=== PATIENT | female | born 1950 | race Caucasian/White ===

== ENCOUNTER 2016-09-07 03:39 | Inpatient (IN) | payer OTHER ==
[2016-09-07] MEDS ORDERED: DILTIAZEM HCL 5 MG/ML 5ML VIAL IV ONE (03:52)
[2016-09-07 04:08] LABS: VENOUS BLOOD GAS BASE EXCESS -1.7 mmol/L (-2.0-2.0)
[2016-09-07] MEDS ORDERED: ETOMIDATE 2 MG/ML 10ML VIAL IV ONE (04:11)
[2016-09-07 04:15] LABS: BASO % 0.2 % (0.2-1.0); EOS % 0.1 % (0.9-2.9); HEMATOCRIT 44.1 % (37.0-47.0); HEMOGLOBIN 14.7 gm/l (12.0-16.0); IMM NEUT # 0.1 K/mm3 (0-0.2); IMM NEUT% 0.3 % (0-1); LYMPH # 2.5 (1.0-4.8); LYMPH % 16.8 % (15-45); MEAN CELL VOLUME 84.2 fl (81.0-99.0); MEAN CORPUSCULAR HEMOGLOBIN 28.1 pg (27.0-31.0); MEAN CORPUSCULAR HGB CONC 33.3 g/dl (33.0-37.0); MEAN PLATELET VOLUME 9.6 fl (7.4-10.4); MONO # 1.3 (0.0-0.8); MONO % 8.6 % (4-12); PLATELET COUNT 267 K/mm3 (130-400); RED CELL DISTRIBUTION WIDTH 14.6 % (11.5-14.5)
[2016-09-07 04:18] LABS: I-STAT CREATININE 0.7 mg/dL (0.6-1.3)
[2016-09-07 05:09] LABS: ALB/GLOB RATIO 1.3 (>1.0); ALBUMIN 4.3 gm/dL (3.5-5.7); CALCIUM 9.3 mg/dL (8.6-10.3)
[2016-09-07] MEDS ORDERED: CEFTRIAXONE 1 GRAM DUPLEX 50 ML IV ONE (05:19)
[2016-09-07] MEDS ORDERED: AZITHROMYCIN 250 MG TABLET ONE (05:19)
[2016-09-07] MEDS ORDERED: SODIUM CHLORIDE 0.9% 100 ML IV PRN (05:58)
[2016-09-07] MEDS ORDERED: BLISTEX LIPSTICK 1 EACH TP PRN (05:58)
[2016-09-07] MEDS ORDERED: MAGNESIUM HYDROXIDE 30 ML UDCUP PO PRN (05:58)
[2016-09-07] MEDS ORDERED: BISACODYL 5 MG TABLET.EC PO PRN (05:58)
[2016-09-07] MEDS ORDERED: BISACODYL 10 MG SUP PR PRN (05:58)
[2016-09-07 06:58] VITALS: BMI 26.9
[2016-09-07] MEDS: ACETAMINOPHEN 325 MG TABLET PO PRN ×2 (08:17→15:35)
[2016-09-07] MEDS: DOCUSATE SODIUM 100 MG CAPSULE PO SCH ×2 (08:17→20:51)
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
[2016-09-07] MEDS: ALBUTEROL NEB 2.5 MG/3 ML VIAL.NEB NEB PRN (08:34)
[2016-09-07] MEDS ORDERED: PUMP TUBING ONE (08:48)
--- NOTE | 2016-09-07 08:51 | RAD ---
09/07/2016 8:45 AM CHEST-AP BEDSIDE History: Shortness of breath Comparison: 09/01/2016 Findings: Single AP view of the chest is obtained. The lungs are clear with out effusion or pneumothorax. The cardiomediastinal silhouette is unremarkable.. The osseous structures are intact.. IMPRESSION: No acute intrathoracic process.
[2016-09-07] MEDS ORDERED: LORAZEPAM 0.5 MG TABLET PO PRN (12:09)
[2016-09-07] MEDS ORDERED: RIVAROXABAN 20 MG TABLET PO SCH (12:15)
[2016-09-07] MEDS: ALBUTEROL/IPRATROPIUM 2.5/0.5 MG 3 ML/EACH DOSE NEB SCH ×3 (13:02→20:19)
[2016-09-07] MEDS: FLUTICASONE PROP 110 MCG 120 PUFF/INHALER IH SCH ×2 (13:13→20:48)
[2016-09-07] MEDS: METOPROLOL TARTRATE 50 MG TABLET PO SCH ×2 (13:13→20:50)
[2016-09-07] MEDS: OXYCODONE HCL 5 MG TABLET PO SCH ×3 (13:13→20:50)
[2016-09-07] MEDS: LISINOPRIL 10 MG TABLET PO SCH (13:13)
[2016-09-07] MEDS: DULOXETINE HCL 60 MG CAP PO SCH (13:37)
[2016-09-07] MEDS: GUAIFENESIN 400 MG TABLET PO PRN ×2 (13:38→19:19)
[2016-09-07] MEDS: RIVAROXABAN 10 MG TABLET PO SCH (13:38)
[2016-09-07] MEDS: NICOTINE 21 MG PATCH 1 EACH TD SCH (13:38)
[2016-09-07] MEDS: MELOXICAM 15 MG TABLET PO SCH (13:38)
[2016-09-07] MEDS: BENZONATATE 100 MG CAPSULE PO PRN ×2 (15:37→20:49)
[2016-09-07] MEDS ORDERED: IV START KIT ONE (16:55)
[2016-09-07] MEDS ORDERED: SODIUM CHLORIDE 0.9% FLUSH 10 ML ONE (16:55)
[2016-09-07] MEDS: MENTHOL/CETYLPYRD 1 EACH LOZENGE PO PRN ×2 (18:30→19:23)
[2016-09-07] MEDS: OLANZAPINE 5 MG TABLET PO SCH (20:49)
[2016-09-07] MEDS: SENNOSIDES 8.6 MG TABLET PO SCH (20:51)
[2016-09-07] MEDS: RISPERIDONE 1 MG TABLET PO SCH (22:35)
[2016-09-08 05:47] LABS: ABSOLUTE NEUTROPHIL COUNT 3.9 K/mm3 (1.8-7.7); BASO % 0.4 % (0.2-1.0); EOS % 0.3 % (0.9-2.9); HEMATOCRIT 41.8 % (37.0-47.0); HEMOGLOBIN 13.5 gm/l (12.0-16.0); IMM NEUT% 0.3 % (0-1); LYMPH # 2.5 (1.0-4.8); MEAN CELL VOLUME 85.5 fl (81.0-99.0); MEAN CORPUSCULAR HEMOGLOBIN 27.6 pg (27.0-31.0); MEAN CORPUSCULAR HGB CONC 32.3 g/dl (33.0-37.0); MEAN PLATELET VOLUME 8.9 fl (7.4-10.4); MONO # 0.8 (0.0-0.8); PLATELET COUNT 231 K/mm3 (130-400)
[2016-09-08 06:17] LABS: CALCIUM 9.2 mg/dL (8.6-10.3)
[2016-09-08 07:17] LABS: BAND 0 % (0-10); BASOPHIL 0 % (0-1); EOSINOPHIL 0 % (1-3); LYMPHOCYTE 33 % (15-45); MONOCYTE 10 % (4-12); NEUTROPHILS 57 % (43-75); PLATELET ESTIMATE NORMAL (NORMAL); TOTAL CELLS COUNTED 100
[2016-09-08] MEDS: GUAIFENESIN 400 MG TABLET PO PRN ×2 (08:09→12:29)
[2016-09-08] MEDS: OXYCODONE HCL 5 MG TABLET PO SCH ×4 (08:09→20:42)
[2016-09-08] MEDS: MENTHOL/CETYLPYRD 1 EACH LOZENGE PO PRN ×2 (08:09→09:46)
[2016-09-08] MEDS: METOPROLOL TARTRATE 50 MG TABLET PO SCH (08:09)
[2016-09-08] MEDS: BENZONATATE 100 MG CAPSULE PO PRN ×2 (08:09→12:29)
[2016-09-08] MEDS: FLUTICASONE PROP 110 MCG 120 PUFF/INHALER IH SCH ×2 (08:11→20:42)
[2016-09-08] MEDS: NICOTINE 21 MG PATCH 1 EACH TD SCH (08:12)
[2016-09-08] MEDS ORDERED: PUMP TUBING ONE (08:20)
[2016-09-08] MEDS: ALBUTEROL/IPRATROPIUM 2.5/0.5 MG 3 ML/EACH DOSE NEB SCH ×7 (08:39→21:35)
[2016-09-08] MEDS: AZITHROMYCIN 500 MG in SODIUM CHLORIDE 0.9% 250 ML IV SCH (09:02)
[2016-09-08] MEDS: SENNOSIDES 8.6 MG TABLET PO SCH ×2 (09:10→20:40)
[2016-09-08] MEDS: MELOXICAM 15 MG TABLET PO SCH (09:11)
[2016-09-08] MEDS: PANTOPRAZOLE 40 MG TABLET DR PO SCH (09:11)
[2016-09-08] MEDS: LISINOPRIL 10 MG TABLET PO SCH (09:11)
[2016-09-08] MEDS: DOCUSATE SODIUM 100 MG CAPSULE PO SCH ×2 (09:11→20:43)
[2016-09-08] MEDS: DULOXETINE HCL 60 MG CAP PO SCH (09:11)
[2016-09-08] MEDS: RIVAROXABAN 10 MG TABLET PO SCH (09:11)
[2016-09-08] MEDS: CEFTRIAXONE 1 GRAM DUPLEX 1 G in Premix (D5W) 50 ml 1 EACH IV SCH (10:10)
[2016-09-08] MEDS: ACETYLCYSTEINE 20% NEB SCH ×3 (11:13→23:07)
[2016-09-08] MEDS ORDERED: PREDNISONE 20 MG TABLET PO ONE (13:23)
[2016-09-08] MEDS ORDERED: METOPROLOL TARTRATE 25 MG TABLET PO ONE (13:24)
--- NOTE | 2016-09-08 17:38 | PDOC43 ---
- Subjective Chief Complaint: Shortness of breath Subjective: Reports Adequate Oral Intake, Reports Cough (persists and is productive), Reports Fever (up to 101 last night) - Objective Vital Signs Temperature 98.3 F 09/08/16 10:51 Pulse Rate 96 09/08/16 11:13 Respiratory Rate 24 09/08/16 11:13 Blood Pressure 122/81 09/08/16 10:51 O2 Saturation by Pulse Oximetry 94 09/08/16 11:13 Oxygen Delivery Method Nasal Cannula Oxygen Flow Rate 2 Intake and Output 09/07/16 09/08/16 09/09/16 06:59 06:59 06:59 Intake Total 2306 1026 Output Total 1855 201 Balance 451 825 General: Alert, Oriented x3, Cooperative, Mild Distress HEENT: Mucous membr. moist/pink Lungs: Diminished at Bases (with some wheezes) Cardiovascular: Other (reg tachy) Abdomen: Soft, Normal Bowel Sounds, Non-Distended, No Tenderness Extremities: No Edema Skin: Warm, Dry, Intact Laboratory 09/08/16 05:15 09/08/16 05:15 09/08/16 05:15 MCHC 32.3 L RDW 15.0 H Estimated GFR 101 H Current Medications: Current meds reviewed in EMR. - Problems: Assessment/Plan (1) COPD (chronic obstructive pulmonary disease) Qualifiers: COPD type: COPD with acute exacerbation Qualifier Code: (J44.1) Chronic obstructive pulmonary disease with (acute) exacerbation Status: AcuteAssessment/Plan: Sputum from last week and admission growing Sttaph aureus appears sens to cephalosporins, started PO prednisone today. Patient with acute on chronic hypoxic resp failure, no pneumonia evident on CXR-improving, cont rocephin and azithromycin (2) Atrial fibrillation Qualifiers: Atrial fibrillation type: paroxysmal Qualifier Code: (I48.0) Paroxysmal atrial fibrillation Status: AcuteAssessment/Plan: and atrial flutter with tachycardia and rate up to 160bpm on admit S/P electrical cardioversion in ED, remains in sinus tachy-increase metoprolol, cont. Xarelto (3) HTN (hypertension), benign Status: ChronicAssessment/Plan: improving on metoprolol (4) Schizophrenia Qualifiers: Schizophrenia type: unspecified Qualifier Code: (F20.9) Schizophrenia, unspecified Status: ChronicAssessment/Plan: with chronic depression-stable on home meds (5) Hyponatremia Status: AcuteAssessment/Plan: sodium improved from 123-130 on fluid restriction, suspect due to side effects from psych meds-relax fluid restriction (6) CHF (congestive heart failure) Qualifiers: Congestive heart failure type: diastolic Congestive heart failure chronicity: chronic Qualifier Code: (I50.32) Chronic diastolic (congestive) heart failure Status: ChronicAssessment/Plan: appears stable VTE Prophylaxis: Xarelto Disposition: likely home in am
[2016-09-08] MEDS: RISPERIDONE 1 MG TABLET PO SCH (20:41)
[2016-09-08] MEDS: OLANZAPINE 5 MG TABLET PO SCH (20:43)
[2016-09-08] MEDS: METOPROLOL TARTRATE 100 MG TABLET PO SCH (20:43)
[2016-09-08] MEDS ORDERED: CYCLOBENZAPRINE HCL 10 MG TABLET PO PRN (21:00)
[2016-09-09] MEDS: ACETAMINOPHEN 325 MG TABLET PO PRN (05:31)
[2016-09-09] MEDS: BENZONATATE 100 MG CAPSULE PO PRN (06:08)
[2016-09-09] MEDS ORDERED: LISINOPRIL 10 MG TABLET PO SCH (07:43)
[2016-09-09] MEDS: ALBUTEROL/IPRATROPIUM 2.5/0.5 MG 3 ML/EACH DOSE NEB SCH ×3 (07:53→12:34)
[2016-09-09] MEDS: ACETYLCYSTEINE 20% NEB SCH ×2 (07:54→08:16)
[2016-09-09] MEDS: ALBUTEROL NEB 2.5 MG/3 ML VIAL.NEB NEB PRN (08:57)
[2016-09-09] MEDS ORDERED: PREDNISONE 20 MG TABLET PO SCH (09:00)
[2016-09-09] MEDS: NICOTINE 21 MG PATCH 1 EACH TD SCH (09:36)
[2016-09-09] MEDS: PANTOPRAZOLE 40 MG TABLET DR PO SCH (09:37)
[2016-09-09] MEDS: FLUTICASONE PROP 110 MCG 120 PUFF/INHALER IH SCH (09:37)
[2016-09-09] MEDS: METOPROLOL TARTRATE 100 MG TABLET PO SCH (09:38)
[2016-09-09] MEDS: RIVAROXABAN 10 MG TABLET PO SCH (09:38)
[2016-09-09] MEDS: DOCUSATE SODIUM 100 MG CAPSULE PO SCH (09:38)
[2016-09-09] MEDS: OXYCODONE HCL 5 MG TABLET PO SCH ×2 (09:39→12:56)
[2016-09-09] MEDS: MELOXICAM 15 MG TABLET PO SCH (09:39)
[2016-09-09] MEDS: DULOXETINE HCL 60 MG CAP PO SCH (09:39)
[2016-09-09] MEDS: CEFTRIAXONE 1 GRAM DUPLEX 1 G in Premix (D5W) 50 ml 1 EACH IV SCH (09:43)
[2016-09-09] MEDS: SENNOSIDES 8.6 MG TABLET PO SCH (09:45)
[2016-09-09] MEDS: MENTHOL/CETYLPYRD 1 EACH LOZENGE PO PRN (09:46)
[2016-09-09] MEDS: AZITHROMYCIN 500 MG in SODIUM CHLORIDE 0.9% 250 ML IV SCH (10:22)
[2016-09-09 13:03] VITALS: BP 170/92
--- NOTE | 2016-09-09 13:29 | DS ---
Peter Cloud [id number] DATE OF ADMISSION: 09/07/2016 DATE OF DISCHARGE: 09/09/2016 DISCHARGE DIAGNOSES: 1. Shortness of breath. 2. Chronic obstructive pulmonary disease exacerbation with acute bacterial bronchitis caused by Staph aureus. 3. Hypoxia with acute on chronic respiratory failure. 4. Atrial flutter with tachycardia status post electrical cardioversion. 5. Chronic essential hypertension. 6. Chronic diastolic congestive heart failure. 7. Schizophrenia. 8. Depression. TO SUMMARIZE THE ADMISSION AND HOSPITAL COURSE: The patient is a 65-year-old female with medical problems as listed above who presented to [facility] Emergency Department with complaints of worsening cough and shortness of breath symptoms associated with nasal congestion for the past ten days. In the emergency department, she was found to be tachycardic with a heart rate in the 160's associated with atrial flutter. She was cardioverted with electricity after falling to convert with IV Cardizem. She remained in sinus rhythm. The emergency department physician was concerned she had pneumonia given her cough and worsening hypoxia and she was referred to the hospitalist service for admission. Her chest x-ray did not show any infiltrates, but she did have leukocytosis with a white count elevated at 14,000. A venous pH of 7.28 and normal electrolytes and negative cardiac enzymes. She was initially admitted to the intermediate care unit on telemetry. She was treated with Rocephin and Zithromax. She initially had mild hyponatremia with a sodium of 123. She was placed on a fluid restriction. On September 08 she continued to have some persistent wheezing and oral prednisone was added. Her sodium levels improved to 130 with fluid restriction. By September 09 was felt to be medically stable for discharge. Sputum cultures growing Staph aureus which is pain sensitive. During the patient's hospital stay she had some persistent sinus tachycardia which was improved with increasing her metoprolol up to 100 mg twice daily. She was noted to have persistent blood pressure elevation and her lisinopril dose was increased to 40 mg daily up from 10. PHYSICAL EXAMINATION: VITALS: At discharge showed a temperature of 97.5, pulse 86, blood pressure 181/89, respirations 18, oxygen saturation 96% on 2 liters. GENERAL: This is a female in no acute distress. HEENT: Unremarkable. LUNGS: Show scattered wheezes. CARDIOVASCULAR: Reveals a regular rate and rhythm without a murmur. EXTREMITIES: Show no edema. LABORATORY STUDIES: No new labs done today. DISPOSITION: Home. DISCHARGE MEDICATIONS: 1. I am going to increase her lisinopril to 40 mg daily. 2. I am going to prescribe Bactrim DS twice daily for 10 days. She is going to resume her usual home medications which include: 1. Senna 2 tablets twice daily. 2. Xarelto 20 mg every morning. 3. Risperdal 3 mg at bedtime. 4. Oxycodone 10 mg four times daily as needed for pain. 5. Prilosec 20 mg daily. 6. Zyprexa 30 mg at bedtime. 7. Nicoderm patch 21 mg daily. 8. Lopressor 100 mg twice daily, dose was increased from 75mg. 9. Mobic 15 mg daily. 10. Ativan 0.5 mg twice daily as needed for her anxiety. 11. Combivent Respimat meter dose inhaler one puff 4 times daily. 12. Flovent 110 mcg inhaler two puffs twice daily. 13. Cymbalta 120 mg daily. 14. Colace 200 mg twice daily. 15. Flexeril 10 mg three times daily as needed for spasm. 16. Tessalon 100 mg every four hours as needed for cough. 17. DuoNebs 3 mL nebulized four times daily as needed for her dyspnea. 18. Albuterol meter dose inhaler two puffs every four hours as needed for wheezing. 19. She is going to be prescribed a prednisone taper, 40 mg daily for 2 days, followed by 20 mg daily for 4 days, and then 10 mg daily for 4 days. FOLLOW UP: She should follow up with her primary care provider, Dr. Sherwin Hughes in the next 1 to 2 weeks. JOB: [id number] CC: Dr. Sherwin Hughes
== END 2016-09-09 14:20 | disposition home or self-care (01) | DRG 191 ==
LOC: ED 03:39 → MS 05:19 → ICU 05:19
PROVIDERS: ADMIT Family Medicine; ATTEND Family Medicine
DX: J44.0 Chronic obstructive pulmonary disease with (acute) lower respiratory infection (principal); J96.11 Chronic respiratory failure with hypoxia; I50.30 Unspecified diastolic (congestive) heart failure; J20.2 Acute bronchitis due to streptococcus; J44.1 Chronic obstructive pulmonary disease with (acute) exacerbation; I48.91 Unspecified atrial fibrillation; F20.9 Schizophrenia, unspecified; F32.9 Major depressive disorder, single episode, unspecified; F17.210 Nicotine dependence, cigarettes, uncomplicated; I11.0 Hypertensive heart disease with heart failure; R00.0 Tachycardia, unspecified

== ENCOUNTER 2016-11-09 10:31 | Inpatient (IN) | payer OTHER ==
[2016-11-09] MEDS ORDERED: IOPAMIDOL 370 (76%) 100 ML VIAL IV ONE (10:32)
[2016-11-09] MEDS ORDERED: DILTIAZEM HCL 5 MG/ML 5ML VIAL IV ONE ×2 (10:37→11:16)
[2016-11-09 10:55] LABS: ABSOLUTE NEUTROPHIL COUNT 19.7 K/mm3 (1.8-7.7); BASO # 0.1 K/mm3 (0.0-0.2); BASO % 0.2 % (0.2-1.0); EOS # 0.1 (0.0-0.5); EOS % 0.3 % (0.9-2.9); HEMATOCRIT 38.3 % (37.0-47.0); HEMOGLOBIN 12.4 gm/l (12.0-16.0); IMM NEUT # 0.2 K/mm3 (0-0.2); IMM NEUT% 0.6 % (0-1); LYMPH % 8.6 % (15-45); MEAN CELL VOLUME 87.2 fl (81.0-99.0); MEAN CORPUSCULAR HEMOGLOBIN 28.2 pg (27.0-31.0); MEAN CORPUSCULAR HGB CONC 32.4 g/dl (33.0-37.0); MONO # 1.8 (0.0-0.8); MONO % 7.4 % (4-12); NEUT % 82.9 % (43-75); PLATELET COUNT 253 K/mm3 (130-400); RED CELL DISTRIBUTION WIDTH 14.6 % (11.5-14.5)
[2016-11-09 11:11] LABS: ALB/GLOB RATIO 1.3 (>1.0); ALBUMIN 3.7 gm/dL (3.5-5.7); CALCIUM 8.9 mg/dL (8.6-10.3); MAGNESIUM 1.7 mg/dL (1.9-2.7)
[2016-11-09] MEDS ORDERED: MAGNESIUM SULFATE 2 G/50 ML 50 ML IV ONE (11:30)
[2016-11-09 11:42] LABS: BAND 0 % (0-10); BASOPHIL 0 % (0-1); EOSINOPHIL 0 % (1-3); LYMPHOCYTE 7 % (15-45); MONOCYTE 5 % (4-12); NEUTROPHILS 88 % (43-75); PLATELET ESTIMATE NORMAL (NORMAL); TOTAL CELLS COUNTED 100
--- NOTE | 2016-11-09 12:03 | RAD ---
CHEST-AP BEDSIDE COMPARISON: Portable chest x-ray 09/07/2016 HISTORY: Cough for 2 days, worse today with hemoptysis and rapid heart rate. FINDINGS: Views: Frontal chest. Lungs: Transverse bands of opacity in both lung bases in a pattern of atelectasis. Heart and vessels: Normal Trachea and bronchi: Normal Mediastinum and harley: Normal Costophrenic sulci: Normal Chest wall and bones: No acute finding. Osteoarthritis at both shoulders. Fusion hardware in the upper lumbar spine. Upper abdomen: Normal. IMPRESSION: Subsegmental atelectasis in both lung bases.
[2016-11-09 12:22] LABS: URINE BILIRUBIN NEGATIVE (NEGATIVE); URINE BLOOD 2+ (NEGATIVE); URINE GLUCOSE (UA) NEGATIVE (NEGATIVE); URINE LEUKOCYTE ESTERASE NEGATIVE (NEGATIVE); URINE NITRITE NEGATIVE (NEGATIVE); URINE PROTEIN NEGATIVE (NEGATIVE); URINE UROBILINOGEN NORMAL (0-1 mg/dl)
[2016-11-09 12:30] LABS: URINE APPEARANCE CLEAR; URINE BACTERIA 0; URINE COLOR YELLOW; URINE EPITHELIAL CELLS 0-1 /hpf; URINE WBC NEG /hpf
[2016-11-09 12:33] LABS: AMPHETAMINES/METHAMPHETAMINES NEGATIVE (NEGATIVE); COCAINE NEGATIVE (NEGATIVE); MARIJUANA POSITIVE (NEGATIVE); METHADONE POSITIVE (NEGATIVE); OPIATES NEGATIVE (NEGATIVE); TRICYCLIC ANTIDEPRESSANTS POSITIVE (NEGATIVE)
--- NOTE | 2016-11-09 13:27 | CT ---
Exam: CT angiogram chest with contrast Comparison: Chest radiograph 11/09/[address] chest 06/14/2016, 08/30/2013 History: Shortness of breath, chest pain, coughing up blood, elevated WBC. Technique: CT angiogram of the chest was obtained following the administration of 80 mL Isovue-370 intravenous contrast using a CT angiogram pulmonary embolism protocol which was supplemented with MIP reformations constructed at the CT workstation. Findings: Examination is slightly limited due to motion artifact and timing of the contrast bolus. Nevertheless, examination does remain diagnostic. There is no evidence of acute pulmonary thromboembolic disease through the proximal subsegmental level. There is focal airspace disease within the left lower lobe, just beneath the hilum , as well as within the right perihilar region to a lesser extent. Patchy centrilobular densities are also noted within the anterior left lower lobe. Bronchial wall thickening is appreciated, most pronounced within the right lower lobe. There is some volume loss and atelectasis within the lower lobes, right greater than left. There are tiny bilateral pleural effusions. There is no pericardial effusion. There is no significant mediastinal or hilar lymphadenopathy by size criteria. Diffuse esophageal thickening is suggested. Limited evaluation of the upper abdomen is without acute or concerning abnormality. Prominence of the biliary tree is noted, not significantly changed since the 2013 exam. Degenerative changes are noted about both shoulders, right greater than left. No worrisome lytic or blastic osseous lesion is identified. Hardware is appreciated within the lumbar spine bending completely evaluated. IMPRESSION: 1. No evidence of acute pulmonary thromboembolic disease. 2. Findings most compatible with multifocal pneumonia, most prominent within the left lower lobe but also within the right lower lobe. Tiny bilateral pleural effusions are appreciated. 3. Diffuse esophageal thickening is suggested. Findings were discussed with Dr. Holder 1323 hours 11/09/2016.
[2016-11-09] MEDS ORDERED: SODIUM CHLORIDE 0.9% 1,000 ML ONE (13:48)
[2016-11-09] MEDS ORDERED: METOPROLOL TARTRATE 1 MG/ML 5ML VIAL ONE (14:02)
[2016-11-09] MEDS ORDERED: DILTIAZEM HCL/NORMAL SALINE 100 ML IV ONE (14:02)
[2016-11-09] MEDS ORDERED: LACTATED RINGERS 1,000 ML ONE (14:02)
[2016-11-09] MEDS ORDERED: VANCOMYCIN HCL IV ONE (14:30)
[2016-11-09] MEDS ORDERED: SODIUM CHLORIDE 0.9% IV ONE (14:30)
[2016-11-09] MEDS ORDERED: PUMP TUBING ONE (15:07)
[2016-11-09] MEDS ORDERED: MAGNESIUM SULFATE 2 G/50 ML 2 G in Premix (Water) 50 ml 1 EACH IV ONE (15:19)
[2016-11-09 15:22] VITALS: BMI 28.6
[2016-11-09] MEDS ORDERED: VANCOMYCIN HCL 0 G in SODIUM CHLORIDE 0.9% 250 ML IV SCH (15:30)
[2016-11-09] MEDS ORDERED: Cefepime HCl 1 G in NS 0.9% (MINI-BAG PLUS) 50 ML IV ONE ×2 (15:45→16:00)
[2016-11-09] MEDS ORDERED: BLISTEX LIPSTICK 1 EACH TP PRN (15:49)
[2016-11-09] MEDS ORDERED: ACETAMINOPHEN 325 MG TABLET PO PRN (15:49)
[2016-11-09] MEDS ORDERED: MAGNESIUM HYDROXIDE 30 ML UDCUP PO PRN (15:49)
[2016-11-09] MEDS ORDERED: BISACODYL 10 MG SUP PR PRN (15:49)
[2016-11-09] MEDS ORDERED: BISACODYL 5 MG TABLET.EC PO PRN (15:49)
[2016-11-09] MEDS ORDERED: MENTHOL/CETYLPYRD 1 EACH LOZENGE PO PRN (15:49)
[2016-11-09] MEDS: PANTOPRAZOLE 40 MG TABLET DR PO SCH (16:17)
[2016-11-09] MEDS: POLYETHYLENE GLYCOL 3350 17 G POWD.SUSP PO SCH (16:17)
[2016-11-09] MEDS ORDERED: ALBUTEROL/IPRATROPIUM 2.5/0.5 MG 3 ML/EACH DOSE NEB PRN (16:31)
[2016-11-09] MEDS ORDERED: Cefepime HCl 2 G in NS 0.9% (MINI-BAG PLUS) 50 ML IV ONE (17:00)
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
[2016-11-09] MEDS: OXYCODONE HCL 5 MG TABLET PO SCH ×2 (17:34→21:54)
[2016-11-09] MEDS: METOPROLOL TARTRATE 1 MG/ML 5ML VIAL IV SCH ×2 (17:34→23:59)
[2016-11-09] MEDS: DILTIAZEM HCL/NORMAL SALINE 100 ML IV PRN ×2 (17:44→19:45)
[2016-11-09] MEDS: OLANZAPINE 5 MG TABLET PO SCH (20:20)
[2016-11-09] MEDS: RISPERIDONE 1 MG TABLET PO SCH (20:21)
[2016-11-09] MEDS: ALBUTEROL/IPRATROPIUM 2.5/0.5 MG 3 ML/EACH DOSE NEB SCH (20:31)
[2016-11-09] MEDS: SENNOSIDES 8.6 MG TABLET PO SCH (20:43)
[2016-11-09] MEDS: CYCLOBENZAPRINE HCL 10 MG TABLET PO SCH (20:43)
[2016-11-09] MEDS: DOCUSATE SODIUM 100 MG CAPSULE PO SCH ×2 (20:44→21:58)
[2016-11-10] MEDS: SODIUM CHLORIDE 0.9% 100 ML IV PRN (00:19)
[2016-11-10] MEDS: Cefepime HCl 2 G in NS 0.9% (MINI-BAG PLUS) 50 ML IV SCH ×3 (00:21→16:48)
[2016-11-10] MEDS: VANCOMYCIN HCL IV SCH ×4 (02:16→15:00)
[2016-11-10] MEDS: DEXTROSE IV SCH ×4 (02:16→15:00)
[2016-11-10] MEDS: D5W IV SCH ×4 (02:16→15:00)
[2016-11-10] MEDS: DILTIAZEM HCL/NORMAL SALINE 100 ML IV PRN ×2 (02:23→08:17)
[2016-11-10] MEDS: METOPROLOL TARTRATE 1 MG/ML 5ML VIAL IV SCH ×2 (05:24→08:48)
[2016-11-10 06:08] LABS: ABSOLUTE NEUTROPHIL COUNT 11.9 K/mm3 (1.8-7.7); BASO # 0.1 K/mm3 (0.0-0.2); BASO % 0.3 % (0.2-1.0); EOS # 0.2 (0.0-0.5); EOS % 1.3 % (0.9-2.9); HEMATOCRIT 36.3 % (37.0-47.0); HEMOGLOBIN 11.4 gm/l (12.0-16.0); IMM NEUT # 0.1 K/mm3 (0-0.2); IMM NEUT% 0.5 % (0-1); LYMPH # 1.7 (1.0-4.8); MEAN CELL VOLUME 88.8 fl (81.0-99.0); MEAN CORPUSCULAR HEMOGLOBIN 27.9 pg (27.0-31.0); MEAN CORPUSCULAR HGB CONC 31.4 g/dl (33.0-37.0); MEAN PLATELET VOLUME 9.1 fl (7.4-10.4); MONO # 1.2 (0.0-0.8); MONO % 7.7 % (4-12); NEUT % 79.2 % (43-75); PLATELET COUNT 237 K/mm3 (130-400)
[2016-11-10 06:33] LABS: I-STAT CREATININE 0.4 mg/dL (0.6-1.3)
[2016-11-10] MEDS: OXYCODONE HCL 5 MG TABLET PO SCH ×3 (07:48→19:43)
[2016-11-10] MEDS: LISINOPRIL 20 MG TABLET PO SCH ×2 (07:48→09:28)
[2016-11-10] MEDS ORDERED: METOPROLOL TARTRATE 1 MG/ML 5ML VIAL IV SCH (08:30)
[2016-11-10] MEDS ORDERED: OXYCODONE HCL 5 MG TABLET PO SCH (08:30)
[2016-11-10] MEDS: ALBUTEROL/IPRATROPIUM 2.5/0.5 MG 3 ML/EACH DOSE NEB SCH ×4 (08:32→19:32)
--- NOTE | 2016-11-10 08:32 | PDOC43 ---
- Subjective Chief Complaint: Dyspnea Feels about the same, coughing up bloody sputum. HR comes down with metoprolol IV but dose does not last long. - Objective Vital Signs Temperature 99.2 F 11/10/16 05:00 Pulse Rate 113 11/10/16 07:00 Respiratory Rate 19 11/10/16 07:00 Blood Pressure 122/62 11/10/16 07:00 O2 Saturation by Pulse Oximetry 91 11/10/16 07:00 Oxygen Delivery Method Nasal Cannula Oxygen Flow Rate 2 Intake and Output 11/09/16 11/10/16 11/11/16 06:59 06:59 06:59 Intake Total 3235 Output Total 350 Balance 2885 General: Alert, Oriented x3, Cooperative, Mild Distress HEENT: Mucous membr. moist/pink Lungs: Diminished at Bases (poor air movement), Other (exp wheezes) Cardiovascular: Irregular (rapid) Abdomen: Soft, Normal Bowel Sounds, No Tenderness, No Masses Extremities: Pulses Diminished but Palpable, No Edema Skin: Normal Color, Other (diaphoretic) Neurological: Normal Speech Psych/Mental Status: Normal Mood Laboratory 11/10/16 05:30 11/10/16 05:30 11/10/16 05:30 RBC 4.09 L MCHC 31.4 L RDW 15.0 H BUN 3 L Current Medications: Current meds reviewed in EMR. - Problems: Assessment/Plan (1) HCAP (healthcare-associated pneumonia) Status: AcuteAssessment/Plan: Presumed bacterial HC-associated Pneumonia present on admit with sepsis ( leukocytosis and tachypnea). Blood cultures pending. Continue Cefepime and Vancomycin. (2) Hypomagnesemia Status: AcuteAssessment/Plan: May be contributing to A fib, f/u lab pending. (3) COPD (chronic obstructive pulmonary disease) Qualifiers: COPD type: COPD with acute exacerbation Qualifier Code: (J44.1) Chronic obstructive pulmonary disease with (acute) exacerbation Status: ChronicAssessment/Plan: With acute on chronic respiratory failure, stable on O2 2 L/min. Continue nebs and home inhalers, consider steroids. (4) Atrial fibrillation Qualifiers: Atrial fibrillation type: paroxysmal Qualifier Code: (I48.0) Paroxysmal atrial fibrillation Status: AcuteAssessment/Plan: Paroxismal A fib/flutter in exacerbation with tachycardia. Minimal response to diltiazem ip at 20 mg/hr and only brief response to IV metoprolol. Will discuss with Dr. Lee. (5) CHF (congestive heart failure) Qualifiers: Congestive heart failure type: diastolic Congestive heart failure chronicity: chronic Qualifier Code: (I50.32) Chronic diastolic (congestive) heart failure Status: ChronicAssessment/Plan: BNP moderately elevated on admit but that appears to be due to tachycardia. Patient does not appear to clinically have CHF exacerbation at this time. On fluid restriction, diurese if indicated. (6) Fibromyalgia syndrome Status: ChronicAssessment/Plan: Continue usual oxycodone and gabapentin (7) HTN (hypertension), benign Status: ChronicAssessment/Plan: Maintaining adequate BP despite IV diltiazem and metoprolol. (8) Schizophrenia Qualifiers: Schizophrenia type: unspecified Qualifier Code: (F20.9) Schizophrenia, unspecified Status: ChronicAssessment/Plan: Continue usual meds (9) GERD (gastroesophageal reflux disease) Qualifiers: Esophagitis presence: esophagitis presence not specified Qualifier Code : (K21.9) Gastro-esophageal reflux disease without esophagitis Status: ChronicAssessment/Plan: Continue PPI tx (10) Hyponatremia Status: ChronicAssessment/Plan: Stable at her baseline of 130. VTE Prophylaxis: Rivaroxaban
[2016-11-10] MEDS: MELOXICAM 15 MG TABLET PO SCH (08:54)
[2016-11-10] MEDS: DULOXETINE HCL 60 MG CAP PO SCH (08:54)
[2016-11-10] MEDS: RIVAROXABAN 10 MG TABLET PO SCH (08:55)
[2016-11-10] MEDS: SENNOSIDES 8.6 MG TABLET PO SCH ×2 (08:55→20:57)
[2016-11-10] MEDS: CLOPIDOGREL BISULFATE 75 MG TABLET PO SCH (09:38)
[2016-11-10] MEDS ORDERED: INSULIN ASPART (DOSE) 100 UNITS/1 ML SUB-Q PRN (09:38)
[2016-11-10] MEDS: DOCUSATE SODIUM 100 MG CAPSULE PO SCH ×3 (09:38→20:57)
[2016-11-10] MEDS: PANTOPRAZOLE 40 MG TABLET DR PO SCH (09:39)
[2016-11-10] MEDS: POLYETHYLENE GLYCOL 3350 17 G POWD.SUSP PO SCH (09:42)
[2016-11-10] MEDS: METOPROLOL TARTRATE 100 MG TABLET PO SCH ×2 (10:51→16:20)
[2016-11-10 12:39] LABS: A1C-GLYCOHEMOGLOBIN 0.5 g/dl; HEMOGLOBIN-GLYCO 10.6 g/dl
[2016-11-10 13:17] LABS: CALCIUM 8.7 mg/dL (8.6-10.3); MAGNESIUM 1.8 mg/dL (1.9-2.7)
[2016-11-10] MEDS: RISPERIDONE 1 MG TABLET PO SCH (20:56)
[2016-11-10] MEDS: METOPROLOL TARTRATE 50 MG TABLET PO SCH (20:59)
[2016-11-10] MEDS: OLANZAPINE 5 MG TABLET PO SCH (21:00)
[2016-11-10] MEDS: CYCLOBENZAPRINE HCL 10 MG TABLET PO SCH (21:00)
[2016-11-10] MEDS ORDERED: SODIUM CHLORIDE 0.9% 500 ML IV SCH (23:45)
[2016-11-11] MEDS: SODIUM CHLORIDE 0.9% 100 ML IV PRN (00:30)
[2016-11-11] MEDS: Cefepime HCl 2 G in NS 0.9% (MINI-BAG PLUS) 50 ML IV SCH ×4 (01:10→17:28)
[2016-11-11] MEDS ORDERED: DIGOXIN 0.25 MG TABLET PO ONE (01:15)
[2016-11-11] MEDS ORDERED: DIGOXIN 0.25 MG TABLET ONE (01:19)
[2016-11-11] MEDS: OXYCODONE HCL 5 MG TABLET PO SCH ×6 (02:33→23:33)
[2016-11-11 02:49] LABS: BASO % 0.4 % (0.2-1.0); EOS # 0.3 (0.0-0.5); EOS % 2.3 % (0.9-2.9); HEMATOCRIT 34.7 % (37.0-47.0); HEMOGLOBIN 11.1 gm/l (12.0-16.0); IMM NEUT% 0.4 % (0-1); LYMPH # 1.7 (1.0-4.8); LYMPH % 15.6 % (15-45); MEAN CELL VOLUME 88.3 fl (81.0-99.0); MEAN CORPUSCULAR HEMOGLOBIN 28.2 pg (27.0-31.0); MEAN PLATELET VOLUME 9.1 fl (7.4-10.4); MONO # 1.1 (0.0-0.8); MONO % 9.7 % (4-12); NEUT % 71.6 % (43-75); PLATELET COUNT 253 K/mm3 (130-400); RED CELL DISTRIBUTION WIDTH 14.9 % (11.5-14.5)
[2016-11-11 03:13] LABS: MAGNESIUM 1.8 mg/dL (1.9-2.7)
[2016-11-11] MEDS: VANCOMYCIN HCL IV SCH ×4 (03:52→18:05)
[2016-11-11] MEDS: D5W IV SCH ×4 (03:52→18:05)
[2016-11-11] MEDS: DEXTROSE IV SCH ×4 (03:52→18:05)
[2016-11-11] MEDS ORDERED: VANCOMYCIN HCL 1 G/20 ML VIAL ONE ×2 (03:57→04:30)
[2016-11-11] MEDS ORDERED: D5W 0 ML IV ONE (03:58)
[2016-11-11] MEDS ORDERED: VANCOMYCIN HCL 1.25 G in SODIUM CHLORIDE 0.9% 250 ML IV SCH (04:00)
[2016-11-11] MEDS ORDERED: EtCO2 Monitoring Set ONE (04:18)
[2016-11-11] MEDS ORDERED: D5W 250 ML IV ONE (04:30)
[2016-11-11] MEDS ORDERED: DIGOXIN 0.125 MG TABLET PO ONE ×2 (07:00→13:00)
[2016-11-11] MEDS ORDERED: PUMP TUBING ONE ×2 (07:59→17:24)
[2016-11-11] MEDS: DOCUSATE SODIUM 100 MG CAPSULE PO SCH ×2 (08:02→21:04)
[2016-11-11] MEDS: PANTOPRAZOLE 40 MG TABLET DR PO SCH (08:02)
[2016-11-11] MEDS: POLYETHYLENE GLYCOL 3350 17 G POWD.SUSP PO SCH (08:02)
[2016-11-11] MEDS: METOPROLOL TARTRATE 50 MG TABLET PO SCH ×3 (08:03→22:35)
[2016-11-11] MEDS: CLOPIDOGREL BISULFATE 75 MG TABLET PO SCH (08:03)
[2016-11-11] MEDS: LISINOPRIL 20 MG TABLET PO SCH (08:03)
[2016-11-11] MEDS: DULOXETINE HCL 60 MG CAP PO SCH (08:04)
[2016-11-11] MEDS: RIVAROXABAN 10 MG TABLET PO SCH (08:05)
[2016-11-11] MEDS: SENNOSIDES 8.6 MG TABLET PO SCH ×2 (08:05→21:03)
[2016-11-11] MEDS ORDERED: METOPROLOL TARTRATE 100 MG TABLET PO SCH (09:15)
[2016-11-11] MEDS ORDERED: IV START KIT ONE (09:24)
[2016-11-11] MEDS ORDERED: SODIUM CHLORIDE 0.9% FLUSH 10 ML ONE (09:25)
[2016-11-11] MEDS: MELOXICAM 15 MG TABLET PO SCH (09:29)
[2016-11-11] MEDS: ALBUTEROL/IPRATROPIUM 2.5/0.5 MG 3 ML/EACH DOSE NEB SCH ×4 (10:39→19:25)
[2016-11-11] MEDS ORDERED: LORAZEPAM 2 MG/ML 1ML SDV IV PRN (11:21)
[2016-11-11] MEDS ORDERED: LIDOCAINE 1% (PRES FREE) 5 ML VIAL PF PRN (11:21)
[2016-11-11] MEDS ORDERED: MAGNESIUM SULFATE 2 G/50 ML 2 G in Premix (Water) 50 ml 1 EACH IV ONE ×2 (12:00→19:00)
[2016-11-11] MEDS ORDERED: D5W IV SCH ×2 (12:00)
[2016-11-11] MEDS ORDERED: VANCOMYCIN HCL IV SCH ×2 (12:00)
[2016-11-11] MEDS ORDERED: DEXTROSE IV SCH ×2 (12:00)
--- NOTE | 2016-11-11 12:05 | PDOC43 ---
- Subjective Chief Complaint: Dyspnea Reports ongoing bloody sputum. C/o feeling tired and falls asleep during exam. Dyspnic with exertion. Multiple attempt to re-start IV have not been successful. - Objective Vital Signs Temperature 96.9 F 11/11/16 08:36 Pulse Rate 150 11/11/16 10:28 Respiratory Rate 15 11/11/16 10:28 Blood Pressure 101/74 11/11/16 10:28 O2 Saturation by Pulse Oximetry 94 11/11/16 10:28 Oxygen Delivery Method Nasal Cannula Oxygen Flow Rate 1 Intake and Output 11/10/16 11/11/16 11/12/16 06:59 06:59 06:59 Intake Total 3235 2501 Output Total 350 1250 500 Balance 2885 1251 -500 General: Alert, Oriented x3, Cooperative, No Acute Distress HEENT: Mucous membr. moist/pink Lungs: Other (poor air movement) Cardiovascular: Irregular (rapid) Abdomen: Soft, Normal Bowel Sounds, No Tenderness, No Masses Extremities: Normal Pulses, No Edema Skin: Normal Color Neurological: Other (sleepy) Psych/Mental Status: Flat Affect (as always) Laboratory 11/11/16 02:05 11/11/16 02:05 11/11/16 11/10/16 11/10/16 02:05 21:53 17:40 RBC 3.93 L MCHC 32.0 L RDW 14.9 H BUN Estimated GFR 101 H POC Capillary Glucose 136 H 126 H Hemoglobin A1c Ionized Calcium Magnesium 1.8 L 11/10/16 05:30 RBC MCHC RDW BUN 5 L Estimated GFR 125 H POC Capillary Glucose Hemoglobin A1c 6.3 H Ionized Calcium 0.90 L Magnesium 1.8 L Current Medications: Current meds reviewed in EMR. - Problems: Assessment/Plan (1) HCAP (healthcare-associated pneumonia) Status: AcuteAssessment/Plan: Presumed bacterial HC-associated Pneumonia present on admit with sepsis ( leukocytosis and tachypnea). Blood cultures negative. WBC improving, continue Cefepime and Vancomycin. (2) Hypomagnesemia Status: AcuteAssessment/Plan: May be contributing to A fib, continue replacement. (3) COPD (chronic obstructive pulmonary disease) Qualifiers: COPD type: COPD with acute exacerbation Qualifier Code: (J44.1) Chronic obstructive pulmonary disease with (acute) exacerbation Status: ChronicAssessment/Plan: With acute on chronic respiratory failure, stable on O2 2 L/min. Continue nebs and home inhalers. (4) Atrial fibrillation Qualifiers: Atrial fibrillation type: paroxysmal Qualifier Code: (I48.0) Paroxysmal atrial fibrillation Status: AcuteAssessment/Plan: Paroxismal A fib/flutter in exacerbation with tachycardia. No response to diltiazem drip and diltiazem stopped. Back on usual dose oral metoprolol, 100 mg BID. Discussed with Dr. Lee who agrees that the pneumonia is driving the A flutter and it won't likely improve until the pneumonia is better. Digoxin started early this a.m., contiinue to follow. (5) CHF (congestive heart failure) Qualifiers: Congestive heart failure type: diastolic Congestive heart failure chronicity: chronic Qualifier Code: (I50.32) Chronic diastolic (congestive) heart failure Status: ChronicAssessment/Plan: BNP moderately elevated on admit but that appears to be due to tachycardia. Patient does not appear to clinically have CHF exacerbation at this time. On fluid restriction, diurese if indicated. (6) Fibromyalgia syndrome Status: ChronicAssessment/Plan: With current sedation, decrease oxycodone. (7) HTN (hypertension), benign Status: ChronicAssessment/Plan: Increase metoprolol as tolerated (8) Schizophrenia Qualifiers: Schizophrenia type: unspecified Qualifier Code: (F20.9) Schizophrenia, unspecified Status: ChronicAssessment/Plan: Continue usual meds (9) GERD (gastroesophageal reflux disease) Qualifiers: Esophagitis presence: esophagitis presence not specified Qualifier Code : (K21.9) Gastro-esophageal reflux disease without esophagitis Status: ChronicAssessment/Plan: Continue PPI tx (10) Hyponatremia Status: ChronicAssessment/Plan: Stable at her baseline of 130. (11) Diabetes type 2, controlled Qualifiers: Diabetes mellitus complication status: without complication Diabetes mellitus adjunct faculty for medical terminology insulin use: without senior living use Qualifier Code: (E11.9 ) Type 2 diabetes mellitus without complications Status: AcuteAssessment/ Plan: New diagnosis with A1c of 6.3%. Correction dose insulin ordered. RD consult. VTE Prophylaxis: Rivaroxaban
--- NOTE | 2016-11-11 17:03 | RAD ---
Exam: Portable chest COMPARISON: 11/09/2016 INDICATION: PICC placement. Findings: A semierect AP portable view of the chest at 1657 hours demonstrates a right upper extremity PICC tip projecting near the cavoatrial junction. There is no pneumothorax or other apparent complication of its placement. Lung volumes remain low with left lower lobe airspace disease and right perihilar atelectasis. There is no pleural effusion. IMPRESSION: Right upper extremity PICC tip projects over the cavoatrial junction. No pneumothorax. Report called to Jessica the PICC nurse at 1700 hours 11/11/2016.
[2016-11-11] MEDS ORDERED: Sodium Chloride 0.9% 40 ML ONE (17:38)
[2016-11-11] MEDS: CYCLOBENZAPRINE HCL 10 MG TABLET PO SCH (21:03)
[2016-11-11] MEDS: RISPERIDONE 1 MG TABLET PO SCH (21:03)
[2016-11-11] MEDS: OLANZAPINE 5 MG TABLET PO SCH (21:04)
[2016-11-12] MEDS: Cefepime HCl 2 G in NS 0.9% (MINI-BAG PLUS) 50 ML IV SCH ×3 (00:27→17:22)
[2016-11-12] MEDS: VANCOMYCIN HCL IV SCH ×6 (01:39→17:57)
[2016-11-12] MEDS: D5W IV SCH ×6 (01:39→17:57)
[2016-11-12] MEDS: DEXTROSE IV SCH ×6 (01:39→17:57)
[2016-11-12 05:15] LABS: HEMATOCRIT 33.8 % (37.0-47.0); MEAN CELL VOLUME 87.6 fl (81.0-99.0); MEAN CORPUSCULAR HEMOGLOBIN 28.5 pg (27.0-31.0); MEAN CORPUSCULAR HGB CONC 32.5 g/dl (33.0-37.0); RED CELL DISTRIBUTION WIDTH 14.8 % (11.5-14.5)
[2016-11-12 05:34] LABS: CALCIUM 8.8 mg/dL (8.6-10.3); MAGNESIUM 2.1 mg/dL (1.9-2.7)
[2016-11-12] MEDS: OXYCODONE HCL 5 MG TABLET PO SCH ×4 (07:00→17:22)
[2016-11-12] MEDS: METOPROLOL TARTRATE 50 MG TABLET PO SCH ×3 (07:06→20:38)
[2016-11-12] MEDS: ALBUTEROL/IPRATROPIUM 2.5/0.5 MG 3 ML/EACH DOSE NEB SCH ×4 (08:29→21:43)
[2016-11-12] MEDS: CLOPIDOGREL BISULFATE 75 MG TABLET PO SCH (09:20)
[2016-11-12] MEDS: LISINOPRIL 20 MG TABLET PO SCH (09:20)
[2016-11-12] MEDS: POLYETHYLENE GLYCOL 3350 17 G POWD.SUSP PO SCH ×2 (09:21→20:36)
[2016-11-12] MEDS: PANTOPRAZOLE 40 MG TABLET DR PO SCH (09:21)
[2016-11-12] MEDS: DOCUSATE SODIUM 100 MG CAPSULE PO SCH ×2 (09:21→20:37)
[2016-11-12] MEDS: SENNOSIDES 8.6 MG TABLET PO SCH ×2 (09:22→20:40)
[2016-11-12] MEDS: DULOXETINE HCL 60 MG CAP PO SCH (09:23)
[2016-11-12] MEDS: MELOXICAM 15 MG TABLET PO SCH (09:24)
[2016-11-12] MEDS ORDERED: SODIUM CHLORIDE 0.9% 250 ML IV ONE (09:54)
[2016-11-12] MEDS ORDERED: PUMP TUBING ONE (09:54)
[2016-11-12] MEDS ORDERED: ENEMA--adult 1 EACH PR PRN (09:56)
--- NOTE | 2016-11-12 10:01 | PDOC43 ---
- Subjective Chief Complaint: Dyspnea Main c/o today is constipation. Does not feel that her respiratory status is any better or worse. No chest pain. - Objective Vital Signs Temperature 99.1 F 11/12/16 07:00 Pulse Rate 148 11/12/16 08:45 Respiratory Rate 23 11/12/16 08:45 Blood Pressure 127/90 11/12/16 08:45 O2 Saturation by Pulse Oximetry 95 11/12/16 07:00 Oxygen Delivery Method Room Air Oxygen Flow Rate 0 Intake and Output 11/11/16 11/12/16 11/13/16 06:59 06:59 06:59 Intake Total 2501 1828 Output Total 1250 2050 Balance 1251 -222 General: Alert, Oriented x3, Cooperative, No Acute Distress HEENT: Mucous membr. moist/pink Lungs: Other (crackles at bases bilateral, no wheezing) Cardiovascular: Irregular (rapid) Abdomen: Soft, Normal Bowel Sounds, No Tenderness, No Masses Extremities: Normal Pulses, No Edema Skin: Normal Color Neurological: Normal Speech Psych/Mental Status: Flat Affect Laboratory 11/12/16 05:00 11/12/16 05:00 11/12/16 11/11/16 11/11/16 05:00 19:33 12:27 RBC 3.86 L MCHC 32.5 L RDW 14.8 H Estimated GFR 101 H POC Capillary Glucose 119 H 125 H Current Medications: Current meds reviewed in EMR. - Problems: Assessment/Plan (1) HCAP (healthcare-associated pneumonia) Status: AcuteAssessment/Plan: Presumed bacterial HC-associated Pneumonia present on admit with sepsis ( leukocytosis and tachypnea). Blood cultures with coag negative staph is skin contaminant, not a true positive. WBC improving, continue Cefepime and Vancomycin. (2) Hypomagnesemia Status: AcuteAssessment/Plan: May be contributing to A fib, improved today (3) COPD (chronic obstructive pulmonary disease) Qualifiers: COPD type: COPD with acute exacerbation Qualifier Code: (J44.1) Chronic obstructive pulmonary disease with (acute) exacerbation Status: ChronicAssessment/Plan: With acute on chronic respiratory failure, now not requiring O2. Continue nebs and home inhalers. (4) Atrial fibrillation Qualifiers: Atrial fibrillation type: paroxysmal Qualifier Code: (I48.0) Paroxysmal atrial fibrillation Status: AcuteAssessment/Plan: Paroxismal A fib/flutter in exacerbation with tachycardia. No response to diltiazem drip and diltiazem stopped. No response to digoxin andnot recommended by cardiology therefore will stop. Discussed with Dr. Lee who agrees that the pneumonia is driving the A flutter and it won't likely improve until the pneumonia is better. His only recommendation was to push the metoprolol dose. (5) CHF (congestive heart failure) Qualifiers: Congestive heart failure type: diastolic Congestive heart failure chronicity: chronic Qualifier Code: (I50.32) Chronic diastolic (congestive) heart failure Status: ChronicAssessment/Plan: BNP moderately elevated on admit but that appears to be due to tachycardia. Patient does not appear to clinically have CHF exacerbation at this time. On fluid restriction, diurese if indicated. (6) Fibromyalgia syndrome Status: ChronicAssessment/Plan: Oxycodone decreased from 10 to 5 mg QID due to excessive sedation, no increased c/o of pain. (7) HTN (hypertension), benign Status: ChronicAssessment/Plan: Increase metoprolol as tolerated (8) Schizophrenia Qualifiers: Schizophrenia type: unspecified Qualifier Code: (F20.9) Schizophrenia, unspecified Status: ChronicAssessment/Plan: Continue usual meds (9) GERD (gastroesophageal reflux disease) Qualifiers: Esophagitis presence: esophagitis presence not specified Qualifier Code : (K21.9) Gastro-esophageal reflux disease without esophagitis Status: ChronicAssessment/Plan: Continue PPI tx (10) Hyponatremia Status: ChronicAssessment/Plan: Improving, usually is around 130. (11) Diabetes type 2, controlled Qualifiers: Diabetes mellitus complication status: without complication Diabetes mellitus exterminator helper termite insulin use: without [facility] use Qualifier Code: (E11.9 ) Type 2 diabetes mellitus without complications Status: AcuteAssessment/ Plan: New diagnosis with A1c of 6.3%. Correction dose insulin ordered. RD consult. (12) Constipation Status: AcuteAssessment/Plan: Increase bowel care. VTE Prophylaxis: Rivaroxaban Disposition: change to med/surg
[2016-11-12] MEDS: RIVAROXABAN 10 MG TABLET PO SCH (10:03)
[2016-11-12] MEDS ORDERED: METOPROLOL TARTRATE 50 MG TABLET PO ONE (10:17)
[2016-11-12] MEDS: DIGOXIN 0.25 MG TABLET PO SCH (13:50)
[2016-11-12 17:09] LABS: VANCOMYCIN TROUGH 19.2 ug/ml (5.0-10.0)
[2016-11-12] MEDS: CYCLOBENZAPRINE HCL 10 MG TABLET PO SCH (20:39)
[2016-11-12] MEDS: RISPERIDONE 1 MG TABLET PO SCH (20:42)
[2016-11-12] MEDS: OLANZAPINE 5 MG TABLET PO SCH (20:43)
[2016-11-13] MEDS: Cefepime HCl 2 G in NS 0.9% (MINI-BAG PLUS) 50 ML IV SCH ×3 (00:51→16:32)
[2016-11-13] MEDS: DEXTROSE IV SCH ×4 (01:24→11:37)
[2016-11-13] MEDS: VANCOMYCIN HCL IV SCH ×4 (01:24→11:37)
[2016-11-13] MEDS: D5W IV SCH ×4 (01:24→11:37)
[2016-11-13] MEDS: LEVALBUTEROL HCL 0.63 MG/3 ML VIAL.NEB NEB PRN ×2 (02:58→18:31)
[2016-11-13] MEDS: OXYCODONE HCL 5 MG TABLET PO SCH ×5 (02:58→20:21)
[2016-11-13] MEDS: ALBUTEROL/IPRATROPIUM 2.5/0.5 MG 3 ML/EACH DOSE NEB SCH ×4 (08:13→21:00)
[2016-11-13] MEDS ORDERED: PUMP TUBING ONE (08:36)
[2016-11-13] MEDS ORDERED: SODIUM CHLORIDE 0.9% 1,000 ML ONE (08:36)
--- NOTE | 2016-11-13 09:44 | PDOC43 ---
- Subjective Chief Complaint: Dyspnea persistent tachycardia despite meds Subjective: Reports Tolerating Diet Well, Denies Shortness of Breath, Denies Chest Pain, Denies Fever - Objective Vital Signs Temperature 98.5 F 11/13/16 07:24 Pulse Rate 157 11/13/16 08:13 Respiratory Rate 20 11/13/16 08:13 Blood Pressure 155/110 11/13/16 07:24 O2 Saturation by Pulse Oximetry 90 11/13/16 08:13 Oxygen Delivery Method Room Air Oxygen Flow Rate 0 Intake and Output 11/12/16 11/13/16 11/14/16 06:59 06:59 06:59 Intake Total 1828 1658 Output Total 0 1335 Balance -222 -1017 General: Alert, Oriented x3, Cooperative, No Acute Distress HEENT: Mucous membr. moist/pink Lungs: Diminished at Bases Cardiovascular: Irregular (with rates between 140-150) Abdomen: Soft, Normal Bowel Sounds, Non-Distended, No Tenderness Extremities: No Edema Laboratory 11/12/16 05:00 11/12/16 16:30 11/12/16 16:30 Vancomycin Trough 19.2 H Current Medications: Current meds reviewed in EMR. - Problems: Assessment/Plan (1) Atrial fibrillation Qualifiers: Atrial fibrillation type: paroxysmal Qualifier Code: (I48.0) Paroxysmal atrial fibrillation Status: AcuteAssessment/Plan: Paroxismal A fib/flutter in exacerbation with tachycardia. No response to diltiazem drip and diltiazem stopped. No response to digoxin and not recommended by cardiology therefore will stop. No response to PO metoprolol so electrical cardioversion performed today and patient converted to NSR with 200J synch cardioversion. (2) HCAP (healthcare-associated pneumonia) Status: AcuteAssessment/Plan: Presumed bacterial HC-associated Pneumonia present on admit with sepsis ( leukocytosis and tachypnea). Blood cultures with coag negative staph is skin contaminant, not a true positive. WBC improving, continue Cefepime and Vancomycin. (3) Diabetes type 2, controlled Qualifiers: Diabetes mellitus complication status: without complication Diabetes mellitus long term care phlebotomist insulin use: without senior care use Qualifier Code: (E11.9 ) Type 2 diabetes mellitus without complications Status: AcuteAssessment/ Plan: New diagnosis with A1c of 6.3%. Correction dose insulin ordered. RD consult. consider metformin on discharge plus diet control (4) COPD (chronic obstructive pulmonary disease) Qualifiers: COPD type: COPD with acute exacerbation Qualifier Code: (J44.1) Chronic obstructive pulmonary disease with (acute) exacerbation Status: ChronicAssessment/Plan: With acute on chronic respiratory failure, now not requiring O2. Continue nebs and home inhalers. (5) CHF (congestive heart failure) Qualifiers: Congestive heart failure type: diastolic Congestive heart failure chronicity: chronic Qualifier Code: (I50.32) Chronic diastolic (congestive) heart failure Status: ChronicAssessment/Plan: BNP moderately elevated on admit but that appears to be due to tachycardia. Patient likely has component of acute diastolic chf due to tachycardia. On fluid restriction, diurese if indicated. (6) Fibromyalgia syndrome Status: ChronicAssessment/Plan: Oxycodone decreased from 10 to 5 mg QID due to excessive sedation, no increased c/o of pain. (7) GERD (gastroesophageal reflux disease) Qualifiers: Esophagitis presence: esophagitis presence not specified Qualifier Code : (K21.9) Gastro-esophageal reflux disease without esophagitis Status: ChronicAssessment/Plan: Continue PPI tx (8) HTN (hypertension), benign Status: ChronicAssessment/Plan: Increase metoprolol as tolerated (9) Schizophrenia Qualifiers: Schizophrenia type: unspecified Qualifier Code: (F20.9) Schizophrenia, unspecified Status: ChronicAssessment/Plan: Continue usual meds (10) Constipation Qualifiers: Constipation type: unspecified constipation type Qualifier Code: ( K59.00) Constipation, unspecified Status: AcuteAssessment/Plan: resolved, had large BM this am VTE Prophylaxis: Rivaroxaban Disposition: change to med/surg
[2016-11-13] MEDS ORDERED: PROPOFOL 20 ML IV ONE (10:22)
[2016-11-13] MEDS ORDERED: LIDOCAINE 2% (PRES FREE) 5 ML VIAL ONE (10:22)
[2016-11-13] MEDS: DOCUSATE SODIUM 100 MG CAPSULE PO SCH ×2 (10:46→20:20)
[2016-11-13] MEDS: CLOPIDOGREL BISULFATE 75 MG TABLET PO SCH (10:46)
[2016-11-13] MEDS: METOPROLOL TARTRATE 50 MG TABLET PO SCH ×2 (10:47→20:21)
[2016-11-13] MEDS: LISINOPRIL 20 MG TABLET PO SCH (10:47)
[2016-11-13] MEDS: PANTOPRAZOLE 40 MG TABLET DR PO SCH (10:47)
[2016-11-13] MEDS: MELOXICAM 15 MG TABLET PO SCH (10:48)
[2016-11-13] MEDS: DULOXETINE HCL 60 MG CAP PO SCH (10:48)
[2016-11-13] MEDS: SENNOSIDES 8.6 MG TABLET PO SCH ×2 (10:49→20:19)
[2016-11-13] MEDS: POLYETHYLENE GLYCOL 3350 17 G POWD.SUSP PO SCH ×2 (10:49→20:19)
[2016-11-13] MEDS: RIVAROXABAN 10 MG TABLET PO SCH (10:50)
[2016-11-13] MEDS: DIGOXIN 0.25 MG TABLET PO SCH (13:08)
[2016-11-13] MEDS: SODIUM CHLORIDE 0.9% 100 ML IV PRN (16:32)
[2016-11-13 17:04] LABS: VANCOMYCIN TROUGH 22.1 ug/ml (5.0-10.0)
[2016-11-13] MEDS ORDERED: VANCOMYCIN HCL IV SCH (17:30)
[2016-11-13] MEDS ORDERED: D5W IV SCH (17:30)
[2016-11-13] MEDS: VANCOMYCIN HCL 1.25 G in SODIUM CHLORIDE 0.9% 250 ML IV SCH (18:11)
--- NOTE | 2016-11-13 19:50 | PROCNOTE ---
ANGELINA COHEN [id number] DATE OF PROCEDURE: November 13, 2016 PROCEDURE: Electrical cardioversion. PREOPERATIVE DIAGNOSIS: Atrial fibrillation with tachycardia refractory to medical management. POSTOPERATIVE DIAGNOSIS: Sinus rhythm. ANESTHESIA: Provided by the CHRISTIAN COUNSELOR. COMPLICATIONS: None. PROCEDURE: After a PARQ conference was held with the patient, consent was obtained. I confirmed with the patient that she has been on Zarelto continuously for the past 6 weeks. The patient was sedated, and the patient was given electrical cardioversion using a synchronized defibrillator with an initial charge of 200 joules. The cardioversion in an anterior/posterior direction using the pads that came with the defibrillator. The patient cardioverted on the first attempt and remained in sinus rhythm after the procedure. Recovery will be provided by the anesthesia provider and intermediate care unit staff.
[2016-11-13] MEDS: OLANZAPINE 5 MG TABLET PO SCH (20:19)
[2016-11-13] MEDS: CYCLOBENZAPRINE HCL 10 MG TABLET PO SCH (20:20)
[2016-11-13] MEDS: RISPERIDONE 1 MG TABLET PO SCH (20:21)
[2016-11-14] MEDS: Cefepime HCl 2 G in NS 0.9% (MINI-BAG PLUS) 50 ML IV SCH ×2 (00:25→09:12)
[2016-11-14] MEDS: OXYCODONE HCL 5 MG TABLET PO SCH ×2 (04:07→09:08)
[2016-11-14] MEDS: VANCOMYCIN HCL 1.25 G in SODIUM CHLORIDE 0.9% 250 ML IV SCH (05:26)
[2016-11-14] MEDS ORDERED: METOPROLOL TARTRATE 50 MG TABLET PO SCH (09:00)
[2016-11-14] MEDS: SENNOSIDES 8.6 MG TABLET PO SCH (09:07)
[2016-11-14] MEDS: DOCUSATE SODIUM 100 MG CAPSULE PO SCH (09:07)
[2016-11-14] MEDS: LISINOPRIL 20 MG TABLET PO SCH (09:07)
[2016-11-14] MEDS: DULOXETINE HCL 60 MG CAP PO SCH (09:08)
[2016-11-14] MEDS: PANTOPRAZOLE 40 MG TABLET DR PO SCH (09:08)
[2016-11-14] MEDS: CLOPIDOGREL BISULFATE 75 MG TABLET PO SCH (09:08)
[2016-11-14] MEDS: RIVAROXABAN 10 MG TABLET PO SCH (09:08)
[2016-11-14] MEDS: POLYETHYLENE GLYCOL 3350 17 G POWD.SUSP PO SCH (09:08)
[2016-11-14] MEDS: MELOXICAM 15 MG TABLET PO SCH (09:09)
[2016-11-14] MEDS: ALBUTEROL/IPRATROPIUM 2.5/0.5 MG 3 ML/EACH DOSE NEB SCH ×2 (09:24→13:11)
[2016-11-14 11:53] VITALS: BP 156/93
[2016-11-14] MEDS: DIGOXIN 0.25 MG TABLET PO SCH (12:27)
--- NOTE | 2016-11-14 14:22 | DS ---
ANGELINA COHEN [id number] DATE OF ADMISSION: 11/09/2016 DATE OF DISCHARGE: 11/14/2016 DISCHARGE DIAGNOSES: 1. Bacterial pneumonia with sepsis possibly health care associated pneumonia. The actual bacteria was not identified. 2. Paroxysmal atrial flutter with severe tachycardia. 3. Acute diastolic congestive heart failure likely due to the atrial flutter and tachycardia. 4. Adult-onset diabetes without complications. This is new onset and appears to be diet controlled at this point. 5. Chronic obstructive pulmonary disease with acute on chronic hypoxic respiratory failure. 6. Fibromyalgia syndrome with chronic pain. 7. Gastroesophageal reflux disease without esophagitis. 8. Benign essential hypertension. 9. Schizophrenia, chronic. 10. Constipation, resolved. PROCEDURE: Electrocardioversion performed 11/13/2016. SUMMARY OF ADMISSION AND HOSPITAL COURSE: The patient is a 65-year-old female with a history of medical problems as listed above who presented with complaints of increased weakness, and dyspnea as well as a cough. Work up in the emergency department showed evidence of bilateral lower lobe pneumonia on chest x-ray with atrial flutter, and tachycardia. The heart rate is in the 140s to 150s with a 2 to 1 conduction. She was referred to the Hospitalist service for admission. She was initially treated with diltiazem drip. She was given supplemental IV metoprolol. She failed to respond to either medication. she was given digitalis. She did not respond to digitalis. Further titration of her metoprolol was attempted up to 200 mg twice daily without any effective results. She subsequently underwent an electrocardioversion on 11/13/2016 with hinduism to normal sinus rhythm, and control of her tachycardia. During her hospital stay, she remained afebrile. Her hypoxemia resolved. Her initial white blood cell count of 23,000 was down to 8000 by 11/12/2016. She initially had a normal lactate level. She had a hemoglobin A1c level of 6.3. she had a TSH level drawn and was normal at 2.55. The patient was felt to be medically stable for discharge on 11/14/2016. PHYSICAL EXAM: VITAL SIGNS: The vitals at discharged showed a temperature 97.8, pulse 77, blood pressure 159/78, respirations 20, oxygen saturation are 93% on room air. Body mass index is 31.4. Weight is 83.1 kg. GENERAL: This is a slightly obese female in no acute distress. HEENT: Unremarkable. LUNGS: Reveal bibasilar rhonchi which are mild. Good air flow. CARDIOVASCULAR: Exam reveals a regular rate and rhythm without a murmur. ABDOMEN: Soft, nontender, nondistended with positive bowel sounds. EXTREMITIES: Show no peripheral edema. DISPOSITION: Home. ALLERGIES: INCLUDE HYDROXYCHLOROQUINE, PENICILLIN, AMOXICILLIN, AND HYDROCHLOROTHIAZIDE. CODE STATUS: FULL CODE. INSTRUCTIONS: A referral was made to [facility]. DISCHARGE MEDICATIONS: She is going to be prescribed cefdinir 300 mg twice daily for 5 more days for her pneumonia. She will resume her usual home medications which include: 1. Oxycodone 10 mg 4 times daily. 2. Xarelto 20 mg daily. 3. Plavix 75 mg daily. 4. Flexeril 10 mg at bedtime. 5. Lopressor 100 mg twice daily. 6. Anoro Ellipta inhaler 62.5/25 mcg 1 inhalation daily. 7. Lisinopril 40 mg daily. 8. Mobic 15 mg daily. 9. Zyprexa 30 mg at bedtime. 10. Prilosec 20 mg daily. 11. Cymbalta 120 mg daily. 12. Risperdal 3 mg at bedtime. 13. Duoneb 3 mL 4 times daily. 14. Colace 200 mg twice daily. 15. Senna 2 tablets twice daily. DISCHARGE FOLLOW UP: Recommended with Dr. Sherwin Hughes her primary care provider in 7 to 10 days. MYRNA/olga Cc: Sherwin Hughes MD
== END 2016-11-14 13:30 | disposition home or self-care (01) | DRG 871 ==
LOC: ED 10:31 → ICU 14:12 → MS 11-13 12:38
PROVIDERS: ADMIT Family Medicine; ATTEND Family Medicine
PROC: 02HV33Z Insertion of Infusion Device into Superior Vena Cava, Percutaneous Approach (ICD-10-PCS; 2016-11-09)
PROC: 5A2204Z Restoration of Cardiac Rhythm, Single (ICD-10-PCS; principal; 2016-11-13)
DX: A41.9 Sepsis, unspecified organism (principal); J15.9 Unspecified bacterial pneumonia; J96.11 Chronic respiratory failure with hypoxia; I50.32 Chronic diastolic (congestive) heart failure; E87.1 Hypo-osmolality and hyponatremia; Y95 Nosocomial condition; I48.2 Chronic atrial fibrillation; J44.9 Chronic obstructive pulmonary disease, unspecified; Z99.81 Dependence on supplemental oxygen; M79.7 Fibromyalgia; G89.29 Other chronic pain; F20.9 Schizophrenia, unspecified; F32.9 Major depressive disorder, single episode, unspecified; K21.9 Gastro-esophageal reflux disease without esophagitis; M47.812 Spondylosis without myelopathy or radiculopathy, cervical region; K59.00 Constipation, unspecified